=== PATIENT | female | born 1930 | race Caucasian/White ===

== ENCOUNTER 2018-06-04 04:40 | Inpatient (IN) | payer MEDICARE ==
[2018-06-04 05:00] LABS: #Lymphocytes 0.9 thou/uL (1.20-3.40); #Monocytes 0.6 thou/uL (0.11-0.59); #Neutrophils 3.9 thou/uL (1.40-6.50); %Basophils 0.5 % (0.0-1.0); %Eosinophils 0.7 % (0.0-10.0); %Lymphocytes 17.2 % (21.0-51.0); %Monocytes 10.2 % (0.0-10.0); %Neutrophils 71.3 % (42.0-75.0); Hemoglobin 14.6 g/dL (12.0-16.0); Mean Corpuscular HGB CONC 33.4 g/dL (32.0-36.0); Mean Corpuscular Hemoglobin 31.6 pg (27.0-31.0); Mean Corpuscular Volume 94.7 fL (78.0-98.0); Mean Platelet Volume 7.1 fL (7.4-10.4); Platelet Count 197 thou/uL (130-400); Red Blood Cell (RBC) Count 4.63 mill/uL (4.20-5.40); White Blood Cell (WBC) Count 5.4 thou/uL (4.8-10.8)
[2018-06-04 05:38] LABS: ALT (SGPT) 16 U/L (8-55); AST (SGOT) 19 U/L (5-34); Albumin 4.4 g/dL (3.4-4.8); Alkaline Phosphatase 49 U/L (40-150); Anion Gap 12 mmol/L (10-20); BUN (Urea Nitrogen) 21 mg/dL (9.8-20.1); Calc. Creatinine Clearance 0 mL/min (70-130); Calcium 9.8 mg/dL (7.8-10.44); Carbon Dioxide 27 mmol/L (23-31); Chloride 105 mmol/L (98-107); Estimated GFR-MDRD 43; Globulin 2.4 g/dL (2.4-3.5); Glucose 116 mg/dL (83-110); Potassium 4.1 mmol/L (3.5-5.1); Protein, Total 6.8 g/dL (6.0-8.3); Sodium 140 mmol/L (136-145)
[2018-06-04 06:23] LABS: Bilirubin Negative (Negative); Blood, Urine Small (Negative); Clarity CLEAR (Clear); Glucose, Urine (Dipstick) Negative (Negative); Leukocyte Moderate (Negative); Nitrite Negative (Negative); Protein, Urine (Dipstick) 100 mg/dL (Neg-Trace); Specific Gravity, Urine 1.021 (1.002-1.036); Urobilinogen 0.2 mg/dL (0.2-1.0); pH, Urine 6.5 (5.0-9.0)
[2018-06-04 06:41] LABS: Bacteria/HPF Rare-Few HPF (None Seen); Renal Epithelial None Seen HPF (0-3); Transitional Epithelial 0-3 HPF (0-3)
[2018-06-04] MEDS ORDERED: cefTRIAXone\\ROCEPHIN 2 GM VIAL ONE (06:50)
--- NOTE | 2018-06-04 07:10 | CT ---
CT HEAD NONCONTRAST: Date: 06/04/18 INDICATION: Altered mental status. No prior comparison. FINDINGS: There is age-related parenchymal volume loss. Ventricular system is age-appropriate in size. No acute intracranial hemorrhage, mass effect, or midline shift. There is mild mucosal thickening within the paranasal sinuses. Mild chronic ischemic disease is present. IMPRESSION: No acute intracranial hemorrhage or mass effect. POS: HERMANN
--- NOTE | 2018-06-04 07:50 | RAD ---
FExam: Chest one view HISTORY:Altered mental state Comparison: None FINDINGS: Cardiac silhouette:Enlarged Pulmonary vessels: Normal Costophrenic angles: Blunting of the left costophrenic angle. Minimal blunting of the right costophre moi angle. LUNGS: Hyperinflation. Linear opacities in the lung bases are presumed to be due to chronic change. Pleural-based calcifications in the left hemithorax are suspected. Correlate for previous asbestos ex posure. Pneumothorax: None Osseous abnormalities: None IMPRESSION: 1. Chronic changes lung bases. 2. Possible pleural-based calcifications in the left hemithorax. Correlate for asbestos exposure.
[2018-06-04] MEDS ORDERED: Acetaminophen 325 MG TAB PO PRN (08:48)
[2018-06-04] MEDS ORDERED: Calcium Carbonate 500 MG ChewTAB PO PRN (08:48)
[2018-06-04] MEDS ORDERED: Bisacodyl 10 MG SUPP PR PRN (08:48)
[2018-06-04] MEDS ORDERED: Cepastat Lozenges 1 LOZ PO PRN (08:48)
[2018-06-04] MEDS ORDERED: Ondansetron PF 4 MG/2 ML Vial IVP PRN (08:48)
[2018-06-04] MEDS ORDERED: Diabetic Tussin 200 MG/10 ML UDCUP PO PRN (08:48)
[2018-06-04] MEDS ORDERED: Sodium Chloride 0.9% 1,000 ML IV SCH (08:48)
[2018-06-04] MEDS ORDERED: HYDROcodone/Acetaminophen 5/325 mg Tablet PO PRN (08:48)
[2018-06-04] MEDS ORDERED: Ondansetron ODT 4 MG TAB PO PRN (08:48)
[2018-06-04] MEDS ORDERED: Senokot S 8.6-50 MG TAB PO PRN (08:48)
[2018-06-04] MEDS ORDERED: Loperamide HCl 2 MG CAP PO PRN (08:48)
[2018-06-04] MEDS ORDERED: Artificial Tears 18 DROP/0.9 ML EA EYE PRN (08:48)
[2018-06-04] MEDS ORDERED: Sodium Chloride 0.65% Nasal 44 ML BOT EA NARE PRN (08:48)
[2018-06-04] MEDS ORDERED: hydrALAZINE 20 MG/ML VIAL SLOW IVP PRN (08:48)
[2018-06-04] MEDS ORDERED: Zolpidem Tartrate 5 MG TAB PO PRN (08:48)
[2018-06-04] MEDS ORDERED: Loratadine 10 MG TAB PO PRN (08:48)
[2018-06-04] MEDS ORDERED: Eucerin (Mineral Oil/Petrolatum,White) 30 gm Jar TOP PRN (08:48)
[2018-06-04] MEDS ORDERED: Enoxaparin Sodium 40 MG/0.4 ML SYRINGE SC SCH (09:00)
[2018-06-04] MEDS ORDERED: Saccharomyces boulardii 250 MG CAP PO SCH (09:00)
[2018-06-04] MEDS ORDERED: Famotidine 20 MG TAB PO SCH (09:00)
[2018-06-04 09:59] LABS: INR-International Normal Ratio 1.5; Prothrombin Time 17.7 SEC (12.0-14.7)
--- NOTE | 2018-06-04 10:17 | HP ---
PRIMARY CARE PHYSICIAN: [facility] Call admission. REASON FOR ADMISSION: Altered mental status, urinary tract infection. HISTORY OF PRESENT ILLNESS: This is an 87-year-old female who has underlying history of paroxysmal atrial fibrillation and dyslipidemia, who presented to emergency room for evaluation of altered mental status. The patient came earlier to emergency room with her sister. At that time, the patient was found completely normal. The patient was visiting twin sister who is currently admitted in Stroke Unit. Subsequently, the patient was also found with altered mental status. She was disoriented. She was having some vague urinary tract infection symptoms. The patient was taken to the ER and subsequently, the patient had CT of brain, which was unremarkable. Her chest x-ray was unremarkable. Routine blood test was also unremarkable. The patient's urinalysis showed significant urinary tract infection. The patient was given IV fluid and the patient was given Rocephin. The patient also clinically appeared dehydrated. The patient was not eating lately enough and drinking enough as well. REVIEW OF SYSTEMS: CONSTITUTIONAL: Negative for weight loss or gain, ability to conduct usual activities. SKIN: Negative for rash, itching. EYES: Negative for double vision, pain. ENT/MOUTH: Negative for nose bleeding, neck stiffness, pain, tenderness. CARDIOVASCULAR: Negative for palpitations, dyspnea on exertion, orthopnea. RESPIRATORY: Negative for shortness of breath, wheezing, cough, hemoptysis, fever or night sweats. GASTROINTESTINAL: Negative for poor appetite, abdominal pain, heartburn, nausea, vomiting, constipation, or diarrhea. GENITOURINARY: Negative for urgency, frequency, dysuria, nocturia. MUSCULOSKELETAL: Negative for pain, swelling. NEUROLOGIC/PSYCHIATRIC: Negative for anxiety, depression. ALLERGY/IMMUNOLOGIC: Negative for skin rash, bleeding tendency. Please see my HPI for pertinent positives and negatives. All other review of systems reviewed and negative except as mentioned in HPI. PAST MEDICAL HISTORY: Paroxysmal atrial fibrillation, dyslipidemia, and hypertension. PAST SURGICAL HISTORY: Reviewed and negative. PAST PSYCHIATRIC HISTORY: Reviewed and negative. SOCIAL HISTORY: The patient lives with her sister. No history of tobacco, alcohol, or illicit drug abuse. FAMILY HISTORY: No family history of coronary artery disease, stroke, or cancer. ALLERGIES: NO KNOWN DRUG ALLERGIES. CURRENT HOME MEDICATION: 1. Toprol-XL 25 mg p.o. daily. 2. Zocor 20 mg p.o. daily. 3. Warfarin 10 mg daily. EMERGENCY ROOM COURSE: The patient has received Rocephin. PHYSICAL EXAMINATION: VITAL SIGNS: Currently, blood pressure 151/99, pulse 109, respiratory rate 18, temperature 98.9, and saturation 94% on room air. Weight is 74.8 kg. GENERAL: The patient is currently alert and awake, no obvious acute distress. HEENT: Head; normocephalic, atraumatic. Eyes; pupils round and reactive to light. Extraocular muscle intact. ENT; oropharynx within normal limits. Moist mucous membranes. No oral lesion. No pharyngeal erythema. No exudate. NECK: Supple. No JVD. No thyromegaly. No carotid bruit. No jugular venous distention. LUNGS: Clear to auscultation without any rhonchi or rales. CARDIAC: S1, S2 appears irregular. No murmur elicited. No gallop. No rub. ABDOMEN: Soft. Bowel sounds present. Nontender. Nondistended. No organomegaly. No mass. No suprapubic tenderness. BACK: Unremarkable. No CVA tenderness. EXTREMITIES: Upper extremities, passive movement of all joints are normal. Lower extremities, no edema. Good distal pulsation. SKIN: No skin rash. HEMATOLOGICAL: No lymphadenopathy. NEUROLOGIC: Nonfocal examination. The patient slightly appears confused. SIGNIFICANT LABORATORY DATA: EKG showing atrial fibrillation with controlled ventricular response, incomplete right bundle-branch block pattern, LVH. Chest x-ray based on my review, no acute cardiopulmonary process. CT brain based on my review, no acute intracranial process. CBC; WBC 5.4, hemoglobin 14.6, platelet 197. BMP; sodium 140, potassium 4.1, chloride 105, carbon dioxide 27, BUN 21, creatinine 1.20, glucose 116, calcium 9.8. LFTs; AST 19, ALT 16, alkaline phosphatase 49, albumin 4.4. Troponin less than 0.010. CK 107. Urinalysis suggestive of UTI. ASSESSMENT AND PLAN: 1. Acute encephalopathy, likely due to urinary tract infection. 2. Urinary tract infection. 3. Mild dehydration with acute kidney injury. 4. Atrial fibrillation with controlled ventricular response. 5. Chronic anticoagulation. 6. Hypertension. 7. Dyslipidemia. PLAN: Admission to medical floor. We will resume the patient's home medication. Check PT/INR and resume warfarin as per home dosage. Restart Zocor 20 mg p.o. daily. Continue Rocephin 2 g IV q.12h. continue IV fluid NS at 100 mL/h. Repeat labs tomorrow. Follow up on culture result. DVT prophylaxis, the patient is already on warfarin therapy and that is why we will hold on Lovenox therapy, but we will check PT/INR and then resume the patient's home dose of warfarin therapy. GI prophylaxis, Pepcid 20 mg p.o. b.i.d. CODE STATUS: The patient is full code. DISPOSITION PLAN: Based on clinical course. Job ID: [id number]
[2018-06-04 11:51] VITALS: BMI 24.7
[2018-06-04] MEDS ORDERED: Prevnar 13-Val Conj/PF 0.5 ML SYRINGE IM ONE (13:30)
[2018-06-04 16:42] VITALS: BP 138/84; TEMP 98.3
[2018-06-04] MEDS ORDERED: Warfarin Sodium 5 MG TAB PO SCH (17:00)
[2018-06-04] MEDS ORDERED: Simvastatin 20 MG TAB PO SCH (21:00)
[2018-06-04] MEDS ORDERED: Atorvastatin Calcium 10 MG TAB PO SCH (21:00)
[2018-06-05] MEDS ORDERED: cefTRIAXone\\ROCEPHIN 2 GM in Sodium Chloride 0.9% 100 ML IVPB SCH (07:00)
--- NOTE | 2018-06-05 10:58 | DIS ---
DATE OF ADMISSION: 06/04/2018 DATE OF DISCHARGE: 06/04/2018 PRIMARY CARE PHYSICIAN: [facility] Call admission. DISCHARGE DISPOSITION: Home. PRIMARY DISCHARGE DIAGNOSES: 1. Acute encephalopathy, improved. 2. Urinary tract infection. 3. Dehydration, corrected. 4. Acute kidney injury due to dehydration. SECONDARY DISCHARGE DIAGNOSES: 1. Paroxysmal atrial fibrillation. 2. Dyslipidemia. 3. Chronic anticoagulation. PRIMARY PROCEDURE/OPERATION: None. RADIOLOGICAL INVESTIGATION: CT brain, normal. Chest x-ray, normal. SIGNIFICANT LABORATORY DATA: CBC normal. INR 1.5. BMP unremarkable other than creatinine 1.20. LFT normal. Urinalysis suggestive of UTI. Urine culture negative. DISCHARGE MEDICATION: 1. Macrobid 100 mg b.i.d. for 7 days. 2. Warfarin 10 mg daily. 3. Zocor 20 mg p.o. at bedtime. 4. Toprol-XL 25 mg daily. 5. Digoxin 0.25 mg p.o. daily. CONTRAINDICATION: None. CODE STATUS: Full code. INPATIENT CONSULT: None. ALLERGIES: NO KNOWN DRUG ALLERGIES. DISCHARGE PLAN: Posthospital, the patient will follow up with primary care physician. HOSPITAL COURSE: This patient was admitted by me on June 04, 2018. Please see my HPI for further details. This patient was also discharged on June 04, 2018. This is late dictation for discharge summary, but the patient was admitted and discharged on the same day. She had mild transient alteration in mental status, which was attributed to be due to UTI and dehydration. She was given IV fluid, antibiotic therapy, and next few hours the patient's condition significantly improved and dramatically improved and the patient wanted to go home. We changed to Macrobid upon discharge and new medication sent to her pharmacy. Her physical examination is unremarkable. Overall, the patient is medically stable for discharge. The patient was admitted and discharged on the same day. Job ID: [id number]
== END 2018-06-04 16:50 | disposition home or self-care (01) | DRG 690 ==
LOC: ERS 04:40 → T4-A 08:46
PROVIDERS: ADMIT Internal Medicine; ATTEND Internal Medicine
DX: N39.0 Urinary tract infection, site not specified (principal); G93.49 Other encephalopathy; N17.9 Acute kidney failure, unspecified; I48.0 Paroxysmal atrial fibrillation; E78.5 Hyperlipidemia, unspecified; E86.0 Dehydration; I10 Essential (primary) hypertension; Z79.01 Long term (current) use of anticoagulants
CPT/HCPCS: 36415; 70450; 71045; 80053; 81003; 81015; 82550; 84484; 85025; 85610; 87086; 93005; 96365; J0696; J1650